=== PATIENT | female | born 1960 | race Caucasian/White ===

== ENCOUNTER 2021-12-17 06:08 | Outpatient (REF) | payer OTHER, SELFPAY ==
[2021-12-17 12:01] LABS: Free T4 (Free Thyroxine) 1.18 ng/dL (0.71-1.85); Thyroid Stimulating Hormone 1.61 uIU/mL (0.32-4.0); Vitamin D 25-OH Total 16.7 ng/mL (>30)
[2021-12-17 12:04] LABS: Alanine Aminotransferase 15 U/L (0-31); Anion Gap 11 (12-20); Aspartate Amino Transferase 21 U/L (5-31); Blood Urea Nitrogen 15 mg/dL (9-16); Calcium 9.4 mg/dL (8.4-10.2); Carbon Dioxide 29 mmol/L (22-29); Chloride 103 mmol/L (96-108); Cholesterol 207 mg/dL; Estimated Glomerular Filt Rate > 60; Glucose Fasting 90 mg/dL (60-99); HDL Cholesterol 94 mg/dL; LDL Cholesterol Calculated 101 mg/dl; Potassium 4.3 mmol/L (3.3-5.1); Sodium 139 mmol/L (135-145); Triglycerides 61 mg/dL
== END 2021-12-17 06:09 | disposition home or self-care (01) ==
LOC: HO.HMGCLDS 06:08
PROVIDERS: Visit Provider Internal Medicine
DX: Z00.00 Encounter for general adult medical examination without abnormal findings (principal); E03.9 Hypothyroidism, unspecified; E55.9 Vitamin D deficiency, unspecified
CPT/HCPCS: 36415; 80048; 80061; 82306; 84439; 84443; 84450; 84460

== ENCOUNTER 2021-12-24 11:49 | Outpatient (REF) | payer OTHER, SELFPAY ==
[2021-12-30 00:02] LABS: HPV mRNA E6/E7 rflx Not Detected (Not Detected)
== END 2021-12-24 11:50 | disposition home or self-care (01) ==
LOC: HO.LNP 11:49
PROVIDERS: Visit Provider Internal Medicine
DX: Z12.4 Encounter for screening for malignant neoplasm of cervix (principal); Z11.51 Encounter for screening for human papillomavirus (HPV)
CPT/HCPCS: 87624; 88142

== ENCOUNTER 2022-03-19 10:58 | Outpatient (REF) | payer OTHER, SELFPAY ==
[2022-03-19 14:04] LABS: Vitamin D 25-OH Total 61.2 ng/mL (>30)
== END 2022-03-19 10:59 | disposition home or self-care (01) ==
LOC: HO.HMGCLDS 10:58
PROVIDERS: Visit Provider Internal Medicine
DX: E55.9 Vitamin D deficiency, unspecified (principal)
CPT/HCPCS: 36415; 82306

== ENCOUNTER → 2022-03-21 08:14 | Outpatient (BNVA) | payer OTHER, SELFPAY | PROVIDERS: PCP Internal Medicine; Visit Provider Obstetrics & Gynecology | DX: Z01.419 Encounter for gynecological examination (general) (routine) without abnormal findings (principal) ==

== ENCOUNTER 2023-01-16 06:15 | Outpatient (REF) | payer OTHER, SELFPAY ==
[2023-01-16 12:51] LABS: Alanine Aminotransferase 14 U/L (0-31); Anion Gap 15 (12-20); Aspartate Amino Transferase 18 U/L (5-31); Blood Urea Nitrogen 20 mg/dL (9-16); Calcium 9.3 mg/dL (8.4-10.2); Carbon Dioxide 27 mmol/L (22-29); Chloride 107 mmol/L (96-108); Cholesterol 198 mg/dL; Estimated Glomerular Filt Rate > 60; Free T4 (Free Thyroxine) 0.91 ng/dL (0.71-1.85); Glucose Fasting 87 mg/dL (60-99); HDL Cholesterol 89 mg/dL; LDL Cholesterol Calculated 97 mg/dl; Potassium 4.8 mmol/L (3.3-5.1); Sodium 144 mmol/L (135-145); Thyroid Stimulating Hormone 2.51 uIU/mL (0.32-4.0); Triglycerides 62 mg/dL
== END 2023-01-16 06:16 | disposition home or self-care (01) ==
LOC: HO.HMGCLDS 06:15
PROVIDERS: PCP Internal Medicine; Visit Provider Internal Medicine
DX: Z00.01 Encounter for general adult medical examination with abnormal findings (principal); E03.9 Hypothyroidism, unspecified; N95.1 Menopausal and female climacteric states
CPT/HCPCS: 36415; 80048; 80061; 84439; 84443; 84450; 84460

== ENCOUNTER → 2023-04-20 14:53 | Outpatient (BNVA) | payer OTHER, SELFPAY | PROVIDERS: PCP Internal Medicine; Visit Provider Obstetrics & Gynecology ==

== ENCOUNTER 2023-09-12 13:17 | Outpatient (AMB) | payer OTHER, SELFPAY ==
--- NOTE | 2023-09-12 13:25 | A.OFFVIS_ITS ---
Intake Vital Signs 09/12/23 13:27 Height 5 ft 6 in Weight 157 lb BMI 25.3 BP 144/75 H Blood Pressure Location Lt brachial Position Sitting Pulse 56 Intake Visit Reasons: Colonoscopy Screening Intake Note: Patient 2nd pre colonoscopy screening. Patient denies any GI issues. Naturalization Examiner Required: No Accompanied by: Self / Same As Patient Allergies No Known Allergies [No Known Allergies*] Allergy (Verified 09/12/23 13:24) Medication List - Last Reconciled 09/12/23 by Yvrose Adam PA-C levothyroxine 112 mcg PO DAILY HPI HPI Comments History of Present Illness Details A 62-year-old female follows up for 10 year colonoscopy. She has no GI complaints. She has no family history GI cancer She has a normal bowel pattern She has a good appetite No respiratory or cardiac issues Nausea, and vomiting, hematemesis, hematochezia, fever or chills [facility], [facility] Medical History (Updated 09/12/23 @ 13:38 by Yvrose Adam PA-C) ASCUS of cervix with negative high risk HPV Refused influenza vaccine Nocturnal leg cramps Varicose veins of both lower extremities Vitamin D deficiency Acquired hypothyroidism Surgical History Hx of colonoscopy History of dental surgery Status post phlebectomy Social History Housing: House Patient Tobacco Use Status: Never used Tobacco e-Cigarette/Vaping Use: Never Used service: No Current occupational status: employed Cognitive needs: No Hearing needs: No Vision needs: No Review of Systems Const All systems reviewed & are unremarkable except as noted in HPI and below Card Denies chest pain and Denies dyspnea Resp Denies dyspnea GI Denies abdominal pain, Denies nausea and Denies vomiting Physical Exam Vital Signs: Last Vital Signs Pulse 56 09/12/23 13:27 BP 144/75 H 09/12/23 13:27 BMI result Body Mass Index 25.3 Const General: cooperative, healthy appearing, comfortable and no acute distress Orientation/consciousness: patient oriented x3 Limitations: no limitations Eyes Sclerae: sclerae normal Resp Effort & Inspection: normal respiratory effort and able to speak in complete sentences Auscultation: clear to auscultation bilaterally, no rales, no rhonchi and no wheezes Cardio Rate: regular rate Rhythm: regular rhythm Heart sounds: S1 normal heart sound present and S2 normal heart sound present GI Palpation (GI): Soft to palpation and nontender Auscultation: normal bowel sounds Skin General skin exam: no rashes or lesions noted Neuro General: patient oriented x3 Extrem General: Yes full ROM Psych Appearance: grossly normal Mental Status: mental status grossly normal Speech and movement: Normal speech and movement present and Clear speech present Affect: normal affect Attitude: cooperative Thought process: Normal thought process present Thought content: Normal thought content present Insight: Good insight present (Psych) Judgement: Good judgement present (Psych) Assessment & Plan Assessment & Plan (1) Encounter for screening colonoscopy: Code(s): Z12.11 - Encounter for screening for malignant neoplasm of colon Plan: Screening colonoscopy MiraLax Gatorade prep Reviewed prep, need for escorted, rare risks Plan Screening colonoscopy MiraLax Gatorade prep Orders: Orders Colonoscopy - GI Use Only Today Z12.11 - Encounter for screening for malignant neoplasm of colon Medications: New polyethylene glycol 3350 (Miralax) Take as directed by mouth the day before your procedure. 238 grams PO ONCE 1 day PRN 238 grams 0RF laxative effect bisacodyl (Dulcolax (bisacodyl)) Day before procedure, prep day Take 4 tablets by mouth upon awakening followed by large glass of water 20 mg (4 x 5 mg) PO ONCE 1 day 4 tabs 0RF colonoscopy prep Z12.11 - Encounter for screening for malignant neoplasm of colon Patient Instructions: Screening colonoscopy MiraLax Gatorade prep opportunity for questions Encourage to call questions or concerns Coding Level of Care Code New Pt Level 3 (41962) Diagnoses Encounter for screening colonoscopy Z12.11 Time Spent (min) 30
[2023-09-12 13:27] VITALS: BP 144/75; PULSE 56; BMI 25.3
== END 2023-09-12 14:42 | disposition home or self-care (01) ==
PROVIDERS: PCP Internal Medicine; Visit Provider Physician Assistant
DX: Z12.11 Encounter for screening for malignant neoplasm of colon (principal); Z01.818 Encounter for other preprocedural examination
CPT/HCPCS: 99203

== ENCOUNTER → 2023-09-12 13:17 | Outpatient (BNVA) | payer OTHER, SELFPAY | PROVIDERS: PCP Internal Medicine; Visit Provider Physician Assistant ==

== ENCOUNTER 2023-12-23 07:14 | Outpatient (REF) | payer OTHER, SELFPAY ==
[2023-12-23 12:15] LABS: Cholesterol 213 mg/dL (<200); Glucose Fasting 89 mg/dL (60-99); HDL Cholesterol 106 mg/dL (>40); LDL Cholesterol Calculated 98 mg/dL (<100); Triglycerides 47 mg/dL (<150)
[2023-12-23 12:20] LABS: Free T4 (Free Thyroxine) 1.02 ng/dL (0.71-1.85); Thyroid Stimulating Hormone 1.61 uIU/mL (0.32-4.0); Vitamin D 25-OH Total 38.2 ng/mL (>30)
== END 2023-12-23 07:15 | disposition home or self-care (01) ==
LOC: HO.HMGCLDS 07:14
PROVIDERS: PCP Internal Medicine; Visit Provider Internal Medicine
DX: Z13.220 Encounter for screening for lipoid disorders (principal); Z13.1 Encounter for screening for diabetes mellitus; Z78.0 Asymptomatic menopausal state; E03.9 Hypothyroidism, unspecified
CPT/HCPCS: 36415; 80061; 82306; 82947; 84439; 84443

== ENCOUNTER 2024-02-26 07:48 | Day surgery (SDC) | payer OTHER, SELFPAY ==
[2024-02-26 08:10] VITALS: BMI 25.8
[2024-02-26 08:29] VITALS: BP 154/63; PULSE 54; RESP 16; TEMP 36.2; O2SAT 98
[2024-02-26] MEDS: Lactated Ringers 1,000 ML 80 ML IVCONT (08:31)
--- NOTE | 2024-02-26 08:32 | MHC.SHP ---
Pre-Procedural Eval Section A - 24 Hr Update-Section A only Date of Service: 02/26/24 The patient is an INPATIENT: No The patient has been examined within 24 hours of the surgical procedure. The History & Physical has been completed within 30 days and I have reviewed it.: No Section B - Complete if H&P > 30 days Chief Complaint: colon Cancer screening Relevant Family History (Specify if Yes): No Relevant Social History: None Present Medications: see Short Stay Collaborative assessment Medical History: Significant History (ASCUS of cervix with negative high risk HPV Refused influenza vaccine Nocturnal leg cramps Varicose veins of both lower extremities Vitamin D deficiency Acquired hypothyroidism) History of Previous Operations: Relevant previous surgery/procedure and date(s) (Hx of colonoscopy History of dental surgery Status post phlebectomy) Allergies: Allergies Allergy/AdvReac Type Severity Reaction Status Date / Time No Known Allergies Allergy Verified 09/12/23 13:24 [No Known Allergies*] Review of Systems Sugical H&P ROS: Negative: Constitution, Cardiovascular, Respiratory and Gastrointestinal Exam Surgical H&P Exam: Normal: Heart, Normal: Lungs, Normal: Extremities and Normal: Abdomen Plan Diagnosis/Plan: Unchanged I have reviewed the history and physical and performed a pertinent physical examination on my patient. No changes have occurred unless specified. Time Spent With Patient Time: Total time managing care of this patient today ____ minutes.
--- NOTE | 2024-02-26 09:00 | W.PM.OPN ---
Operative Note Operative Note Date of Service: 02/26/24 Narrative: COLONOSCOPY TILL CECUM WITH SNARE POLYPECTOMY AND SUBMUCOSAL INJECTION Pre-op diagnosis: Colon cancer screening Post-op diagnosis:? Colon polyp, Diverticulosis, hemorrhoids Endoscopist:? Shashank Cedillo MD Anesthesia:?MAC Consent: Indications for the procedure and potential complications of bleeding, perforation, reaction to medications and missed diagnosis were discussed with the patient and informed consent was obtained. Instrument: Olympus PCF H 190 L variable stiffness pediatric colonoscope Monitoring: Vital signs and clinical assessment, intermittent blood pressure monitoring, continuous EKG monitoring, Pulse oximetry and Carbon Dioxide monitoring were done throughout the procedure. Please see anesthesia flowsheet. Colon withdrawl time was 22 minutes. Procedure: The patient was placed in the left lateral decubitis position and pre-procedure medications were administered. After a digital rectal examination of the ano-rectum, the video colonoscope was inserted into the rectum and advanced through the colon to the cecum. The colonoscope was slowly withdrawn in a retrograde panoramic fashion and the colon mucosa was carefully examined including a retroflexed view of the rectum. Findings and interventions are described below. Procedure Difficulty: without difficulty Findings: Terminal Ileum: Not evaluated Cecum: Normal Ascending Colon: A 7-8 mm flat polyp in the proximal AC. Polyp was raised with 4 cc of [place] and removed with a hot snare Transverse Colon: Normal Descending Colon: Normal Sigmoid Colon: Moderate diverticulosis Rectum: Normal Ano-rectum: Moderate internal hemorrhoids Colon preparation: Excellent, after some irrigation. [place] Bowel Preparation Scale Right colon; 3 Transverse colon: 3 Left colon; 3 (0 = Unprepared colon segment with mucosa not seen due to solid stool that cannot be cleared. 1 = Portion of mucosa of the colon segment seen, but other areas of the colon segment not well seen due to staining, residual stool and/or opaque liquid. 2 = Minor amount of residual staining, small fragments of stool and/or opaque liquid, but mucosa of colon segment seen well. 3 = Entire mucosa of colon segment seen well with no residual staining, small fragments of stool or opaque liquid) Impression and Post Procedure Diagnosis: Colonoscopy Findings: One small polyp was removed Moderate diverticulosis seen in the sigmoid colon Moderate hemorrhoids on retroflexed exam. Plan: I will send a letter with pathology results Repeat Colonoscopy in 5 years if polyps are adenomatous and 10 year if polyps are hyperplastic. Pt was given a written summary of the findings with relevant handouts in the discharge area.
--- NOTE | 2024-02-26 09:01 | HO.ANESPROP2 ---
COUNT INCLUDES THE [facility] Active Problems Active Problems: All Active Problems Encounter for screening colonoscopy (Acute) Well woman exam (Acute) ASCUS of cervix with negative high risk HPV (Acute) Vitamin D deficiency (Acute) Acquired hypothyroidism (Acute) Past Medical History Medical History ASCUS of cervix with negative high risk HPV Refused influenza vaccine Nocturnal leg cramps Varicose veins of both lower extremities Vitamin D deficiency Acquired hypothyroidism Family History Family history of problems with anesthesia: No Surgical History Surgical History Hx of colonoscopy History of dental surgery Status post phlebectomy History of Problems with Anesthesia: No Social History Social History Housing: House Patient Tobacco Use Status: Never used Tobacco e-Cigarette/Vaping Use: Never Used Use of substances other than those prescribed or required for medical reasons: No Are you DNR?: No Advance Directives: No Advance Directives Information Provided: Yes service: No Current occupational status: employed Cognitive needs: No Hearing needs: No Vision needs: No Meds Allergies Allergy/AdvReac Type Severity Reaction Status Date / Time No Known Allergies Allergy Verified 09/12/23 13:24 [No Known Allergies*] Active Medications: Current Medications Lactated Ringer's (Lr) 1,000 mls @ 80 mls/hr IVCONT .[id number] DIOGENES Last Admin: 02/26/24 08:31 Dose: 80 mls/hr Exam Height,Weight and Vital Signs: Height 5 ft 6 in Weight 72.575 kg Last Vital Signs Temp 97.1 F 02/26/24 08:29 Pulse 54 02/26/24 08:29 Resp 16 02/26/24 08:29 BP 154/63 H 02/26/24 08:29 Pulse Ox 98 02/26/24 08:29 O2 Del Method Room Air 02/26/24 08:29 Airway Mallampati Class: II (false tooth upper left) TM Dist: >3cm Neck ROM: Full Heart: rrr Lungs: cta Assessment and Plan Assessment Anesthesia Assessment: Anesthesia Plan Discussed and Chart Reviewed Final Anesthetic Review Family History of Problems with Anesthesia: No History of Problems with Anesthesia: No NPO: Yes ASA Class: II Final Preanesthetic Review: No Changes in Pt Med Stat, Meds/Allgs Chart Reviewed and Consent Obtained/Reviewed Patient Risk: Low Procedure Risk: Low Anesthetic Plan Anesthetic Plan: MAC: Disposition: Standard PACU
[2024-02-26 09:42] VITALS: BP 105/56; PULSE 60; RESP 16; TEMP 36.3; O2SAT 100
[2024-02-26 09:57] VITALS: BP 149/54; PULSE 48; RESP 16; TEMP 36.1; O2SAT 98
== END 2024-02-26 10:55 | disposition home or self-care (01) ==
PROVIDERS: PCP Internal Medicine; Visit Provider Internal Medicine Gastroenterology
PROC: 0DJD8ZZ Inspection of Lower Intestinal Tract, Via Natural or Artificial Opening Endoscopic (ICD-10-PCS; CPT 45378; principal; 2024-02-26 09:20)
DX: Z12.11 Encounter for screening for malignant neoplasm of colon (principal); K63.5 Polyp of colon; K57.30 Diverticulosis of large intestine without perforation or abscess without bleeding; K64.8 Other hemorrhoids; E55.9 Vitamin D deficiency, unspecified; E03.9 Hypothyroidism, unspecified; Z98.890 Other specified postprocedural states
CPT/HCPCS: 45385; 45381; 88305; J2704

== ENCOUNTER → 2024-02-26 07:48 | Outpatient (BNV) | payer OTHER, SELFPAY | PROVIDERS: PCP Internal Medicine; Visit Provider Internal Medicine Gastroenterology | DX: Z12.11 Encounter for screening for malignant neoplasm of colon (principal); K63.5 Polyp of colon; K57.30 Diverticulosis of large intestine without perforation or abscess without bleeding; K64.8 Other hemorrhoids | CPT/HCPCS: 45381; 45385 ==

== ENCOUNTER 2024-04-24 15:10 | Outpatient (AMB) | payer OTHER, SELFPAY ==
--- NOTE | 2024-04-24 15:30 | MHC.OFFVIS ---
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 No complaints. Last Pap/HPV was ascus/HPV negative in 12/28 Last Mammogram was BI-RADS 2 in 08/27 Last Colonoscopy was done in 02/27, the recommendation was to repeat in 10 years [facility] Medical History (Updated 04/24/24 @ 15:57 by Jam Hernandez MD) ASCUS of cervix with negative high risk HPV Refused influenza vaccine Nocturnal leg cramps Varicose veins of both lower extremities Vitamin D deficiency Acquired hypothyroidism Surgical History Hx of colonoscopy History of dental surgery Status post phlebectomy Social History Housing: House Patient Tobacco Use Status: Never used Tobacco e-Cigarette/Vaping Use: Never Used service: No Current occupational status: employed Cognitive needs: No Hearing needs: No Vision needs: No Female Reproductive History Menstrual Date of last pap smear: 12/28/21 Date of Mammogram: 09/01/22 Review of Systems Const All systems reviewed & are unremarkable except as noted in HPI and below Card Reports as per HPI Resp Reports as per HPI GI Reports as per HPI and Reports no additional complaints Reports as per HPI Physical Exam Const General: cooperative, healthy appearing and comfortable Chest Chest palpation & inspection: normal inspection of the chest and normal palpation of entire chest wall Breast/axilla inspection: normal inspection of the breasts and normal inspection of the axillae Breast/axilla palpation: normal palpation of the breasts, normal palpation of the axillae and no axillary lymphadenopathy Resp Effort & Inspection: normal respiratory effort Auscultation: clear to auscultation bilaterally Percussion: percussion normal Cardio Palpation: normal PMI Rate: regular rate Rhythm: regular rhythm Heart sounds: no murmurs and no rubs Peripheral pulses: Peripheral pulses 2+ throughout GI Inspection: Yes normal to inspection Palpation (GI): Soft to palpation, nontender, no guarding, not rigid and No hepatosplenomegaly present Percussion: Yes normal to percussion Auscultation: normal bowel sounds Rectal Exam - Female: deferred General: Yes bladder normal to palpation External Female Exam: No lesion Speculum Exam - Vagina: normal appearance of the vagina, normal palpation, normal vaginal discharge and not erythematous Speculum Exam - Cervix: normal appearance of the cervix and normal palpation Bimanual exam- vagina & uterus: normal bimanual exam, normal palpation, uterine size normal, bladder normal to palpation, consistency normal and normal palpation Bimanual Exam- Adnexa, other: no tenderness and Other (Right adnexa within normal, left adnexal fullness) Assessment & Plan Assessment & Plan (1) Well woman exam: Comment: Ascus/HPV negative in 12/28 Code(s): Z01.419 - Encounter for gynecological examination (general) (routine) without abnormal findings Category: Medical Plan: Co testing done. Counseled the patient about the recommended dietary allowance of 1200 mg of Calcium & 600 IU of vitamin D. Mammogram ordered. The patient was instructed to perform monthly self-breast exams and schedule annual exam in a year. All questions answered and the patient verbalized understanding. (2) Adnexal fullness: Comment: Left side Code(s): N94.9 - Unspecified condition associated with female genital organs and menstrual cycle Category: Medical Plan: Discussed with the patient the finding on pelvic exam, left adnexal fullness. Pelvic ultrasound ordered. Instructions given the patient to schedule a pelvic ultrasound and a follow-up appointment within 2 weeks. Orders: Orders US pelvic and transvaginal Today N94.9 - Unspecified condition associated with female genital organs and menstrual cycle MM tomosynthesis screening BI Today Z12.31 - Encounter for screening mammogram for malignant neoplasm of breast Coding Level of Care Code Est Pt Prev Care 40-64y(32378) Diagnoses Well woman exam Z01.419 Adnexal fullness N94.9
[2024-04-24 15:34] VITALS: BP 110/74; BMI 25.6
== END 2024-04-24 16:12 | disposition home or self-care (01) ==
LOC: HO.HWS 15:10
PROVIDERS: PCP Internal Medicine; Visit Provider Obstetrics & Gynecology
DX: Z01.419 Encounter for gynecological examination (general) (routine) without abnormal findings (principal); N94.9 Unspecified condition associated with female genital organs and menstrual cycle
CPT/HCPCS: 99396

== ENCOUNTER 2024-04-24 15:10 | Outpatient (REF) | payer OTHER, SELFPAY ==
[2024-04-30 10:44] LABS: HPV mRNA E6/E7 Not Detected (Not Detected)
== END 2024-04-24 15:11 | disposition home or self-care (01) ==
LOC: HO.LNP 15:10
PROVIDERS: PCP Internal Medicine; Visit Provider Obstetrics & Gynecology
DX: Z01.419 Encounter for gynecological examination (general) (routine) without abnormal findings (principal); Z11.51 Encounter for screening for human papillomavirus (HPV)
CPT/HCPCS: 87624; 88142; 88175

== ENCOUNTER 2024-05-01 11:11 | Outpatient (REF) | payer OTHER, SELFPAY ==
--- NOTE | ~2024-05-01 | US_ITS ---
EXAMINATION: US PELVIS COMPLETE CLINICAL INFORMATION: Adnexal fullness. COMPARISON: None. TECHNIQUE: Transabdominal and transvaginal imaging were performed. FINDINGS: The uterus is of normal size and echogenicity measuring 6.5 x 4.1 x 5.1 cm. The uterus is anteverted and anteflexed. A regular, homogeneous endometrium is identified measuring 0.4 cm. Nabothian cysts are seen within the cervix. There are cervical calcifications which may be related to fibroid disease. FIBROIDS: There is 1 fibroid seen. 1. Location: Leftward body, myometrial. Size: 2.9 x 3.0 x 3.6 cm. Fibroid characteristics: Heterogeneous echotexture. Both ovaries are nonvisualized. There is no pelvic free fluid. No adnexal mass is seen. US/US pelvic and transvaginal IMPRESSION: 1. There is a 3.6 cm left uterine fibroid. 2. The ovaries are nonvisualized. 3. Nabothian cysts are seen within the cervix.
== END 2024-05-01 11:12 | disposition home or self-care (01) ==
LOC: HO.US 11:11
PROVIDERS: PCP Internal Medicine; Visit Provider Obstetrics & Gynecology
DX: N94.9 Unspecified condition associated with female genital organs and menstrual cycle (principal)
CPT/HCPCS: 76830; 76856

== ENCOUNTER 2024-05-28 07:33 | Outpatient (AMB) | payer OTHER, SELFPAY ==
--- NOTE | 2024-05-28 07:36 | A.OFFVIS_ITS ---
Vital Signs 05/28/24 07:43 Height 5 ft 6 in Weight 158 lb 11.725 oz BMI 25.6 Intake Visit Reasons: Ultrasound follow up Allergies No Known Allergies [No Known Allergies*] Allergy (Verified 04/24/24 15:34) HPI Comments Details: Presenting for pelvic ultrasound follow-up regarding adnexal fullness identified on pelvic exam. Pelvic ultrasound done recently showed the following: The uterus is of normal size and echogenicity measuring 6.5 x 4.1 x 5.1 cm. The uterus is anteverted and anteflexed. A regular, homogeneous endometrium is identified measuring 0.4 cm. Nabothian cysts are seen within the cervix. There are cervical calcifications which may be related to fibroid disease. FIBROIDS: There is 1 fibroid seen. 1. Location: Leftward body, myometrial. Size: 2.9 x 3.0 x 3.6 cm. Fibroid characteristics: Heterogeneous echotexture. Both ovaries are nonvisualized. There is no pelvic free fluid. No adnexal mass is seen. [facility] Medical History ASCUS of cervix with negative high risk HPV Refused influenza vaccine Nocturnal leg cramps Varicose veins of both lower extremities Vitamin D deficiency Acquired hypothyroidism Surgical History Hx of colonoscopy History of dental surgery Status post phlebectomy Social History Housing: House Patient Tobacco Use Status: Never used Tobacco e-Cigarette/Vaping Use: Never Used service: No Current occupational status: employed Cognitive needs: No Hearing needs: No Vision needs: No Review of Systems Const All systems reviewed & are unremarkable except as noted in HPI and below Reports as per HPI and Reports no additional complaints GI Reports no additional complaints Reports no additional complaints Physical Exam Vital Signs: BMI result Body Mass Index 25.6 Assessment & Plan Assessment & Plan (1) Uterine myoma: Code(s): D25.9 - Leiomyoma of uterus, unspecified Category: Medical Plan: Discussed with the patient the findings on pelvic ultrasound & the risk of myosarcoma; discussed with the patient the options of treatment including expectant management versus hysterectomy; the pros and cons, risks benefits of each approach were discussed with the patient including the fact that in cases of myosarcoma, surgical treatment can lead to early diagnosis and positively affects the prognosis; after further discussion, the patient decided to proceed with expectant management. Will repeat pelvic ultrasound periodically. Instructions given to patient to call in case any of the following occurs: pressure symptoms, abnormal uterine bleeding, pelvic pain; and to schedule a 4 months ultrasound and a follow-up appointment . All questions answered, the patient verbalized understanding and agreed with the plan . Orders: Orders US pelvic and transvaginal 4 Months D25.9 - Leiomyoma of uterus, unspecified Coding Level of Care Code Est Pt Level 3 (28538) Diagnoses Uterine myoma D25.9
[2024-05-28 07:43] VITALS: BMI 25.6
== END 2024-05-28 08:18 | disposition home or self-care (01) ==
PROVIDERS: PCP Internal Medicine; Visit Provider Obstetrics & Gynecology
DX: D25.9 Leiomyoma of uterus, unspecified (principal)
CPT/HCPCS: 99213

== ENCOUNTER → 2024-05-28 07:33 | Outpatient (BNVA) | payer OTHER, SELFPAY | PROVIDERS: PCP Internal Medicine; Visit Provider Obstetrics & Gynecology ==

== ENCOUNTER 2024-06-04 13:21 | Outpatient (AMB) | payer OTHER, SELFPAY ==
[2024-06-04 13:28] VITALS: BP 110/64; PULSE 62; O2SAT 96; BMI 26.0
--- NOTE | 2024-06-04 13:28 | A.OFFPC_ITS ---
Vital Signs 06/04/24 13:28 Height 5 ft 6 in Weight 161 lb BMI 26.0 BP 110/64 Blood Pressure Location Rt brachial Position Sitting Pulse 62 Pulse Source Pulse Oximeter Pulse Oximetry (%) 96 Oxygen Delivery Method Room Air Intake Visit Reasons: PE Intake Note: Pt is here today for her PE Allergies No Known Allergies [No Known Allergies*] Allergy (Verified 06/04/24 14:05) Medication List - Last Reconciled 06/04/24 by Jannet Marie MD levothyroxine 112 mcg PO DAILY Tobacco use date assessed: 06/04/24 Dental Screening Dental Screen Date: 06/04/24 Did you have a dental visit in the last 12 months?: Yes Did you have a dental problem in the last 6 months where you did not have access to dental care?: Yes Was dental information given to patient?: Patient has dentist HPI PE HPI Details 63-year-old lady here today for physical exam. She is up-to-date with her mammogram, had her last mammogram a year ago at [facility] with benign findings.. She had her last cervical cancer screening 04/[address] Hernandez, with normal findings. She is up-to-date with her colon cancer screening with last colonoscopy done 02/26/24 repeat due again in 2031. She has hypothyroidism, currently controlled with levothyroxine. Has been feeling well with no complaints at present time [facility] Medical History (Updated 06/04/24 @ 22:46 by Jannet Marie MD) ASCUS of cervix with negative high risk HPV Refused influenza vaccine Nocturnal leg cramps Varicose veins of both lower extremities Vitamin D deficiency Acquired hypothyroidism Surgical History Hx of colonoscopy History of dental surgery Status post phlebectomy Social History Housing: House Patient Tobacco Use Status: Never used Tobacco e-Cigarette/Vaping Use: Never Used service: No Current occupational status: employed Cognitive needs: No Hearing needs: No Vision needs: No Questionnaire PHQ-9 Over the last 2 weeks, how often have you been bothered by any of the following problems? 1. Little interest or pleasure in doing things: not at all 2. Feeling down, depressed, or hopeless: not at all 3. Trouble falling or staying asleep, or sleeping too much: not at all 4. Feeling tired or having little energy: not at all 5. Poor appetite or overeating: not at all 6. Feeling bad about yourself - or that you are a failure or have let yourself or your family down: not at all 7. Trouble concentrating on things, such as reading the newspaper or watching television: not at all 8. Moving or speaking so slowly that other people could have noticed. Or the opposite - being so fidgety or restless that you have been moving around a lot more than usual: not at all 9. Thoughts that you would be better off or of hurting yourself in some way: not at all Total score: 0 Depression Screening Interpretation: Negative Depression Screening Done: Yes 49774 - PHQ-9 Billing: Yes Source: Developed by Drs. Wolf Sharif, Aisnley Mabry, Joo Carlton and colleagues, with an educational gildardo from [employer]. Thrive Questionnaire Date Thrive assessed: 06/04/24 I am a: Patient What is your living situation today?: I have a steady place to live Within the past 12 months, did the food you bought not last and you didn't have the money to get more?: I choose not to answer this question Within the past 12 months, did you worry whether your food would run out before you got money to buy more?: I choose not to answer this question Do you have trouble paying for medicines?: No Do you have trouble getting transportation to medical appointments?: No Do you have trouble paying your heating and electricity bill?: No Do you have trouble taking care of your child, family member or friend?: No Do you have trouble with day-to-day activities such as bathing, preparing meals, shopping, managing finances, etc.?: I choose not to answer this question Are you currently unemployed and looking for a job?: I choose not to answer this question Are you interested in more education?: I choose not to answer this question Please select the resources that you would like help with: Housing/Custodial Currently or been in a relationship where the following occur: I choose not to answer THRIVE Score: 0 AUDIT C Alcohol Use Questionnaire (AUDIT-C) 1. How often do you have a drink containing alcohol?: 4 or more times a week 2. How many drinks containing alcohol do you have on a typical day when you are drinking?: 3 or 4 3. How often do you have six or more drinks on one occasion?: Never Total Score: 5 RAJINDER-7 AMB Questionnaire RAJINDER-7 Date RAJINDER - 7 assessed: 06/04/24 Feeling nervous, anxious, or on edge: 1 = Several days Not being able to stop or control worryin = Not at all Worrying too much about different things: 0 = Not at all Trouble relaxin = Not at all Being so restless that it is hard to sit still: 0 = Not at all Becoming easily annoyed or irritable: 0 = Not at all Feeling afraid as if something awful might happen: 0 = Not at all Total RAJINDER-7 score (0-4 normal; 5-9 mild; 10-14 moderate; 15-21 severe): 1 Source: Developed by Drs. Wolf Sharif, Ainsley Mabry, Joo Carlton and colleagues, with an educational gildardo from [employer]. RAJINDER-7 Assessment Billing RAJINDER-7 Assessment Tool: RAJINDER-7 Assessment 16700 Review of Systems Const Denies body aches, Denies fatigue, Denies fever(s), Denies headache(s) and Denies weakness Eyes Denies change in vision ENT Denies dizziness, Denies headache(s), Denies nasal congestion and Denies nasal discharge Card Denies chest pain, Denies lightheadedness, Denies palpitations and Denies dyspnea Resp Denies chest congestion, Denies cough, Denies dyspnea and Denies wheezing GI Denies abdominal pain, Denies change in bowel habits and Denies heartburn Denies urinary frequency, Denies dysuria and Denies urinary urgency Musc Reports no additional complaints Skin/Breast Denies lesions and Denies rash Neuro Denies dizziness, Denies headache(s) and Denies weakness Psych Reports no additional complaints Endo Denies fatigue, Denies polydipsia, Denies polyuria and Denies palpitations Arden/Lymph Denies easy bruising Aller/Immun Denies seasonal rhinorrhea and Denies wheezing Physical exam (Primary Care) Vital Signs: Last Vital Signs Pulse 62 06/04/24 13:28 BP 110/64 06/04/24 13:28 Pulse Ox 96 06/04/24 13:28 Oxygen Delivery Method Room Air 06/04/24 13:28 BMI result Body Mass Index 26.0 Tobacco/Smoking Status: Tobacco use Status Tobacco use date assessed 06/04/24 06/04/24 13:30 Patient Tobacco Use Status Never used Tobacco 06/04/24 13:30 e-Cigarette/Vaping Use Never Used 06/04/24 13:30 Depression Screening Interpretation: Negative Thrive Assessment: Date of Thrive Assessment Date Thrive assessed 06/04/24 06/04/24 13:30 Currently or been in a relationship where the following occur: I choose not to answer Const General: healthy appearing, comfortable and no acute distress Nutritional Appearance: average body habitus Orientation/consciousness: patient oriented x3 Limitations: no limitations HENMT Head: Yes normocephalic Ears: hearing grossly normal bilaterally, external ears normal and TM's normal bilaterally General nose exam: Normal external nose present, Normal nasal mucous membranes and turbinates present and No nasal discharge present Face and sinus: Yes face symmetric Mouth: Normal oral and palatal mucosa present and moist mucous membranes Eyes General: appearance normal, both eyes and all related structures Neck Neck: Yes full ROM, Yes no lymphadenopathy and Yes supple Thyroid: Thyroid normal (Nonpalpable) Chest Chest palpation & inspection: normal inspection of the chest Breast/axilla inspection: normal inspection of the breasts Breast/axilla palpation: normal palpation of the breasts Resp Effort & Inspection: normal respiratory effort and able to speak in complete sentences Auscultation: clear to auscultation bilaterally Cardio Rate: regular rate Rhythm: regular rhythm Heart sounds: S1 normal heart sound present and S2 normal heart sound present GI Palpation (GI): Soft to palpation, nontender and no guarding Auscultation: normal bowel sounds General: Yes deferred Back/Spine/Pelvis Back: No back tenderness Skin Other: tattoo on lower back General skin exam: no rashes or lesions noted Neuro General: patient oriented x3, gait normal, tone normal, moves all extremities, Normal light touch and pain sensation, no focal motor deficits and CN's II-XI intact bilaterally Extrem Other: Superficial varicosities noted in both lower extremities General: Yes full ROM, Yes no joint enlargement, Yes no pedal edema, Yes no calf tenderness and Yes normal gait Psych Appearance: grossly normal and well kempt Mental Status: mental status grossly normal Speech and movement: Normal speech and movement present Affect: normal affect Attitude: cooperative Thought process: Normal thought process present Thought content: Normal thought content present Assessment and Plan Assessment & Plan (1) Annual visit for general adult medical examination with abnormal findings: Code(s): Z00.01 - Encounter for general adult medical examination with abnormal findings Plan: Will check appropriate labs. Recommended dental visit every 6 months and regular eye exams, at least every 2 years. Take adequate calcium in diet and vitamin-D 3 at 2000 IU per cap once a day, in addition to weight-bearing exercises to help maintain good muscle tone and weight control. Instructed to do self-breast exam, and continue with yearly mammogram. Up-to-date with her vaccines, reminded to get her shingles vaccination. Up-to-date with her colon cancer screening (2) Acquired hypothyroidism: Code(s): E03.9 - Hypothyroidism, unspecified Plan: Continue levothyroxine 112 mcg daily in a.m., will repeat another TSH and free T4 (3) Vitamin D deficiency: Code(s): E55.9 - Vitamin D deficiency, unspecified Plan: Vitamin-D level ordered (4) Uterine myoma: Code(s): D25.9 - Leiomyoma of uterus, unspecified Qualifiers: Uterine leiomyoma location: unspecified location Qualified Code(s): D25.9 - Leiomyoma of uterus, unspecified Plan: Asymptomatic , followed by Dr. Hernandez (5) Encounter for counseling regarding advance directives: Code(s): Z71.89 - Other specified counseling Plan: Initiated the conversation about Advanced Directives. Advanced Directives help patients prepare for current and future decisions about their medical treatment and place of care. Discussed with patient that it is a process where a patients current condition and prognosis are reviewed, their wishes for information regarding their illness are elicited, and likely medical dilemmas are presented and options discussed. Healthcare proxy form completed today. The form can be amended as needed, reviewed yearly and make changes as needed Orders: Orders Vitamin D 25-OH Total Today D25.9 - Leiomyoma of uterus, unspecified, E03.9 - Hypothyroidism, unspecified, E55.9 - Vitamin D deficiency, unspecified, Z00.01 - Encounter for general adult medical examination with abnormal findings, Z71.89 - Other specified counseling Thyroid Stimulating Hormone Today D25.9 - Leiomyoma of uterus, unspecified, E03.9 - Hypothyroidism, unspecified, E55.9 - Vitamin D deficiency, unspecified, Z00.01 - Encounter for general adult medical examination with abnormal findings, Z71.89 - Other specified counseling Free T4 (Free Thyroxine) Today D25.9 - Leiomyoma of uterus, unspecified, E03.9 - Hypothyroidism, unspecified, E55.9 - Vitamin D deficiency, unspecified, Z00.01 - Encounter for general adult medical examination with abnormal findings, Z71.89 - Other specified counseling Coding Level of Care Code Est Pt Prev Care 40-64y(59339) Diagnoses Annual visit for general adult medical examination with abnormal findings Z00.01 Acquired hypothyroidism E03.9 Vitamin D deficiency E55.9 Uterine leiomyoma, unspecified location D25.9 Uterine leiomyoma location: unspecified location Encounter for counseling regarding advance directives Z71. Additional Codes RAJINDER-7 Assessment Billing - RAJINDER-7 Assessment Tool: RAJINDER-7 Assessment 19165 ([id number])
== END 2024-06-04 14:18 | disposition home or self-care (01) ==
PROVIDERS: PCP Internal Medicine; Visit Provider Internal Medicine
DX: Z00.00 Encounter for general adult medical examination without abnormal findings (principal); E03.9 Hypothyroidism, unspecified; E55.9 Vitamin D deficiency, unspecified; D25.9 Leiomyoma of uterus, unspecified; Z71.89 Other specified counseling
CPT/HCPCS: 99396

== ENCOUNTER 2024-06-13 10:01 | Outpatient (REF) | payer OTHER, SELFPAY ==
[2024-06-13 14:01] LABS: Free T4 (Free Thyroxine) 1.04 ng/dL (0.71-1.85); Thyroid Stimulating Hormone 1.24 uIU/mL (0.32-4.0); Vitamin D 25-OH Total 26.5 ng/mL (>30)
== END 2024-06-13 10:02 | disposition home or self-care (01) ==
LOC: HO.HMGCLDS 10:01
PROVIDERS: PCP Internal Medicine; Visit Provider Internal Medicine
DX: Z00.01 Encounter for general adult medical examination with abnormal findings (principal); E03.9 Hypothyroidism, unspecified; E55.9 Vitamin D deficiency, unspecified; D25.9 Leiomyoma of uterus, unspecified; Z71.89 Other specified counseling
CPT/HCPCS: 36415; 82306; 84439; 84443

== ENCOUNTER 2024-09-27 11:16 | Outpatient (REF) | payer OTHER, SELFPAY ==
--- NOTE | ~2024-09-27 | US_ITS ---
EXAMINATION: US PELVIS CLINICAL INFORMATION: Leiomyomatous uterus. COMPARISON: Pelvic ultrasound dated May 01, 2024 demonstrated a 3.6 cm uterine fibroid TECHNIQUE: Ultrasound of the pelvis is performed using both transabdominal and transvaginal transducers along with Doppler. Transvaginal imaging is performed due to inadequate visualization transabdominally. FINDINGS: Submitted for interpretation on October 16, 2024. Uterus: The uterus is anteverted and measures 7 x 2 x 5 cm. Volume is 34 cc. The double wall endometrial thickness is 3 mm. There is a 3 cm intramural heterogeneous, predominantly isoechoic lesion in the body of the uterus without discrete calcifications. Adnexa: The right ovary is not identified. The left ovary demonstrates normal morphology and echotexture with flow on color Doppler interrogation. Left ovary measures 2 x 1 x 1 cm. Volume is 1 cc US/US pelvic and transvaginal IMPRESSION: 3 cm uterine fibroid. Right ovary is not identified. Left ovary small which correlates with patient's age. Electronically signed by: Kj Castellon MD 10/16/2024 09:13 AM EST
== END 2024-09-27 11:17 | disposition home or self-care (01) ==
LOC: HO.US 11:16
PROVIDERS: PCP Internal Medicine; Visit Provider Obstetrics & Gynecology
DX: D25.9 Leiomyoma of uterus, unspecified (principal)
CPT/HCPCS: 76830; 76856

== ENCOUNTER → 2024-09-27 11:17 | Outpatient (BNV) | payer OTHER, SELFPAY | PROVIDERS: PCP Internal Medicine; Visit Provider Radiology Diagnostic Radiology | DX: D25.1 Intramural leiomyoma of uterus (principal) | CPT/HCPCS: 76830; 76856 ==

== ENCOUNTER 2024-10-17 12:54 | Outpatient (AMB) | payer OTHER, SELFPAY ==
--- NOTE | 2024-10-17 12:56 | MHC.OFFVIS ---
Intake Visit Reasons: TV ultra sound ok per leann Allergies No Known Allergies [No Known Allergies*] Allergy (Verified 06/04/24 14:05) HPI Comments Details: The patient is scheduled tele health visit for follow-up pelvic ultrasound which showed the following: Uterus: The uterus is anteverted and measures 7 x 2 x 5 cm. Volume is 34 cc. The double wall endometrial thickness is 3 mm. There is a 3 cm intramural heterogeneous, predominantly isoechoic lesion in the body of the uterus without discrete calcifications. Adnexa: The right ovary is not identified. The left ovary demonstrates normal morphology and echotexture with flow on color Doppler interrogation. Left ovary measures 2 x 1 x 1 cm. Volume is 1 cc The patient is doing well with no complaints no vaginal bleeding, pelvic pressure or pain PFSH Medical History ASCUS of cervix with negative high risk HPV Refused influenza vaccine Nocturnal leg cramps Varicose veins of both lower extremities Vitamin D deficiency Acquired hypothyroidism Surgical History Hx of colonoscopy History of dental surgery Status post phlebectomy Social History Housing: House Patient Tobacco Use Status: Never used Tobacco e-Cigarette/Vaping Use: Never Used service: No Current occupational status: employed Cognitive needs: No Hearing needs: No Vision needs: No Review of Systems Const All systems reviewed & are unremarkable except as noted in HPI and below Reports as per HPI and Reports no additional complaints GI Reports no additional complaints Reports no additional complaints Telehealth Telehealth Telehealth Platform: Telephone Location of provider rendering services: practice address Location of patient: address on file Patient Identification confirmed using: Name, : Yes Telehealth method: video Patient verbally consented to treatment: Yes Patient verbally consented to billing insurance company: Yes Patient informed of any privacy concerns related to visit: Yes Assessment & Plan Assessment & Plan (1) Uterine myoma: Code(s): D25.9 - Leiomyoma of uterus, unspecified Category: Medical Qualifiers: Uterine leiomyoma location: unspecified location Qualified Code(s): D25.9 - Leiomyoma of uterus, unspecified Plan: Discussed with the patient the findings on pelvic ultrasound & the risk of myosarcoma; size of myoma has decreased from 3.6 cm down to 3 cm between 04/29 in 09/29, discussed with the patient the options of treatment including expectant management versus hysterectomy; the pros and cons, risks benefits of each approach were discussed with the patient including the fact that in cases of myosarcoma, surgical treatment can lead to early diagnosis and positively affects the prognosis; after further discussion, the patient decided to proceed with expectant management. Will repeat pelvic ultrasound periodically. Instructions given to patient to call in case any of the following occurs: pressure symptoms, abnormal uterine bleeding, pelvic pain; and to schedule a six-months pelvic ultrasound (order placed) and a follow-up appointment . All questions answered, the patient verbalized understanding and agreed with the plan . I spent a total of 20 minutes reviewing the chart, talking to the patient via video and documenting in the medical record. Coding Level of Care Code Tele Est Pt Level 3 (25062) Diagnoses Uterine leiomyoma, unspecified location D25.9 Uterine leiomyoma location: unspecified location
--- OUTSIDE RECORDS SUMMARY | 2024-10-17 12:56 | XMS_ITS | Patient Health Record ---
Author Organization [facility] Address [address] [place] [address] Care Team Providers Care Polisher Aluminum Name Role Phone Frank CLEMENS, Jannet Noble Primary Care Provider Un available Sofia Sandoval Unavailable [phone] Reason For Referral No Information Medications Medication SIG (Take, Route, Fr equency, Duration) Notes Start Date End Date Status Euthyrox 112 MCG Orally Act antoine Social History Tobacco Use: Social History Observation Description Date Details (start date - stop date) Never Smoker NA - NA Tobacco Use/Smoking Question Answer Notes Are you a: nonsmoker Additional Findings: Tobacco Non-User Current no n-smoker Alcohol Screen Question Answer Notes Did you have a drink containing alcohol in the p ast year? Yes Points 0 Tobacco use other than smoking: Question Answer Notes Are you an other tobacco user? No Problems Problem Type SNOMED Code ICD Code Onset Dates Problem Status W/U Status Risk Notes Problem 499301443612409 Hallux valgus (acquired), left foot (M20.12) Active confirmed Problem [id number] Hallux valgus (acquired), right foot (M20.11) Active confirmed Problem [id number] Contracture of joint of left foot (M24.575) Active confirmed Problem [id number] Contracture of joint of right foot (M24.574) Active confirmed Plan Of Treatment Pending Test Test Name Order Date X ray : Foot, left 3V 07/21/2020 X ray : Foot, right 3V 07/21/2020 Insurance Providers Payer Name Payer Address Payer Phone Subscriber Number Group Number Insured Name Patient Relationship to Insured Coverage Start Date Coverage End Date [facility] [address] [facility], [place] [address] [id number] Shanon Palacios Self - patient is the insured Medical (General) History Medical History History ICD Code Sciatica Scleroderma thyroid Vascular phlebitis (clots) Joint implants/screws Rosacea Surgical History Surgery Date(Month/Year) Phlebectomy (r) 2012
== END 2024-10-17 13:42 | disposition home or self-care (01) ==
LOC: HO.HWS 12:54
PROVIDERS: PCP Internal Medicine; Visit Provider Obstetrics & Gynecology
DX: D25.9 Leiomyoma of uterus, unspecified (principal)
CPT/HCPCS: 99213

== ENCOUNTER 2024-11-26 10:21 | Outpatient (AMB) | payer OTHER, SELFPAY ==
[2024-11-26 10:23] VITALS: BP 130/86; PULSE 71; TEMP 36.7; O2SAT 98; BMI 25.6
--- NOTE | 2024-11-26 10:23 | AM.OFFWIN_ITS ---
Intake Vital Signs 11/26/24 10:23 Height 5 ft 6 in Weight 158 lb 6 oz BMI 25.6 BP 130/86 Blood Pressure Location Lt brachial Position Sitting Pulse 71 Pulse Source Pulse Oximeter Temp 98.0 F Temp Source Oral Pulse Oximetry (%) 98 Oxygen Delivery Method Room Air Intake Visit Reasons: EP-rt elbow bursitis Intake Note: Pt presents to the office today for c/o right elbow bursitis after falling on her elbow 3 weeks ago. Pt states it was improving but the shoveled yesterday and it became worse again. Pt state it is swollen and painful. Patient Tobacco Use Status: Never used Tobacco Allergies No Known Allergies [No Known Allergies*] Allergy (Verified 11/26/24 10:29) HPI HPI Comments History of Present Illness Details History of Present Illness The patient is a 64 year old female presenting with exacerbation of right elbow swelling and pain. - Approximately three weeks ago, the darren gonsalez fell on a wet floor at home, impacting the elbow directly. - Initial symptoms included swelling aria t responded to icing and ibuprofen, resolving within a few weeks. - Recently, after snow shoveling, the willie ken experienced a significant increase in elbow swelling and pain, noting throbbing sensations overnight. - This exacerbation is impacting her jessica lity to perform duties at work, which require heavy lifting. Physical Exam General: Cooperative, healthy appearing, comfortable, no acute distress and well developed Orientation: Patient oriented x3 Limitations: none Head: Normal to inspection Ears: Hearing grossly normal bilaterally Nose: Normal external nose present Face and sinus: Normal facial exam Eyes: Appearance normal, both eyes and all related structures Neck: Normal visual inspection and Yes full ROM Respiratory: Normal respiratory effort and able to speak in complete sentences. Skin: No rashes or lesions noted Neuro: Patient oriented x3 Extremities: significant edema of right elbow, no warmth, but with full range of motion PFSH Medical History ASCUS of cervix with negative high risk HPV Refused influenza vaccine Nocturnal leg cramps Varicose veins of both lower extremities Vitamin D deficiency Acquired hypothyroidism Surgical History Hx of colonoscopy History of dental surgery Status post phlebectomy Social History Housing: House Patient Tobacco Use Status: Never used Tobacco e-Cigarette/Vaping Use: Never Used service: No Current occupational status: employed Cognitive needs: No Hearing needs: No Vision needs: No Review of Systems Const All systems reviewed & are unremarkable except as noted in HPI and below Physical Exam Vital Signs: Last Vital Signs Temp 98.0 F 11/26/24 10:23 Pulse 71 11/26/24 10:23 BP 130/86 11/26/24 10:23 Pulse Ox 98 11/26/24 10:23 Oxygen Delivery Method Room Air 11/26/24 10:23 BMI result Body Mass Index 25.6 Assessment & Plan Assessment & Plan (1) Bursitis of right elbow: Code(s): M70.31 - Other bursitis of elbow, right elbow Qualifiers: Elbow bursitis location: olecranon bursitis Qualified Code(s): M70.21 - Olecranon bursitis, right elbow Plan: The patient has been diagnosed with olecranon bursitis. Continued conservative treatment is advised, incorporating ice therapy and MARILIN compression wrapping to mitigate inflammation. Naproxen Aleve) is recommended for anti-inflammatory action, 440 mg every 12 hours for the next 2-3 days, then as needed. Should symptoms not improve, she may return to the [place] clinic for a trail of PO prednisone or a referral for potential corticosterone administration or orthopedic evaluation may be required. A note will be issued for work absence due to the patient's restricted function. Patient was informed and verbally consented to the use of an ambient scribe for clinic note documentation during this visit. Coding Level of Care Code Est Pt Level 3 (44691) Diagnoses Olecranon bursitis of right elbow M70.21 Elbow bursitis location: olecranon bursitis
--- OUTSIDE RECORDS SUMMARY | 2024-11-26 11:38 | XMS_ITS | Patient Health Record ---
Author Organization [facility] Address [address] [facility] [place] [address] Care Team Providers Care Water Aerobics Instructor Name Role Phone Frank CLEMENS, Jannet Noble Primary Care Provider Un available Sofia Sandoval Unavailable [phone] Reason For Referral No Information Medications Medication [...] Problem Status W/U Status Risk Notes Problem [id number] Hallux valgus (acquired), left foot (M20.12) Active confirmed Problem [id number] Hallux valgus (acquired), right foot (M20.11) Active confirmed Problem [id number] Contracture of joint of left foot (M24.575) Active confirmed Problem [id number] Contracture of joint of right foot (M24.574) Active confirmed Plan Of Treatment Pending Test Test Name Order Date X ray : Foot, left 3V 07/21/2020 X ray : Foot, right 3V 07/21/2020 Insurance Providers Payer Name Payer Address Payer Phone Subscriber Number Group Number Insured Name Patient Relationship to Insured Coverage Start Date Coverage End Date [facility] [address] [facility], [place] [address] [phone] [id number] Shanon Palacios Self - patient is the insured Medical (General) History Medical History History ICD Code Sciatica Scleroderma thyroid Vascular phlebitis (clots) Joint implants/screws Rosacea Surgical History Surgery Date(Month/Year) Phlebectomy (r) 2012
== END 2024-11-26 10:47 | disposition home or self-care (01) ==
PROVIDERS: PCP Internal Medicine; Visit Provider Physician Assistant
DX: M70.21 Olecranon bursitis, right elbow (principal)

== ENCOUNTER → 2024-11-26 10:21 | Outpatient (BNVA) | payer OTHER, SELFPAY | PROVIDERS: PCP Internal Medicine; Visit Provider Physician Assistant ==

== ENCOUNTER 2024-12-17 14:40 | Outpatient (AMB) | payer OTHER, SELFPAY ==
--- NOTE | 2024-12-17 14:45 | A.OFFVIS_ITS ---
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 Patient reports that she fell on the right elbow at the beginning of November. Her pain began to improve but it was reaggravated when she was shoveling snow on 11/25/24. She was seen at the walk in clinic where she was advised to use ice application and provided with an [place] wrap for compression. She returned to the walk - in center about 3 days later with no improvements, she was then placed on a 5-day course of Prednisone. Patient reports that she is having continued pain of the elbow. She has noticeab le swelling and redness of the elbow. 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 Patient reports that she fell on the right elbow at the beginning of November. Her pain began to improve but it was reaggravated when she was shoveling snow on 11/25/24. She was seen at the walk in clinic where she was advised to use ice application and provided with an [place]in wrap for compression. She returned to the walk - in center about 3 days later with no improvements, she was then placed on a 5-day course of Prednisone. Patient reports that she is having continued pain of the elbow. She has noticeable swelling and redness of the elbow. [facility] Medical History ASCUS of cervix with negative high risk HPV Refused influenza vaccine Nocturnal leg cramps Varicose veins of both lower extremities Vitamin D deficiency Acquired hypothyroidism Surgical History Hx of colonoscopy History of dental surgery Status post phlebectomy Social History Housing: House Patient Tobacco Use Status: Never used Tobacco e-Cigarette/Vaping Use: Never Used service: No Current occupational status: employed Cognitive needs: No Hearing needs: No Vision needs: No Review of Systems Const All systems reviewed & are unremarkable except as noted in HPI and below Physical Exam Vital Signs: BMI result Body Mass Index 25.5 Extrem Other: Patient's right elbow swollen to inspection over the olecranon process No erythema, ecchymosis, edema noted No lacerations, abrasions, open areas No evidence of infection Patient reports no tenderness to palpation of the olecranon process of right elbow Patient is able to flex and extend the right elbow fully and without difficulty Distal sensation intact Capillary refill brisk Assessment & Plan Assessment & Plan (1) Bursitis of right elbow: Code(s): M70.31 - Other bursitis of elbow, right elbow Category: Medical Qualifiers: Elbow bursitis location: olecranon bursitis Qualified Code(s): M70.21 - Olecranon bursitis, right elbow Plan 1. Olecranon bursitis of right elbow Symptoms improving Patient was educated about this condition Patient is educated about the typical treatment course At this time, patient was provided with 2 2 in [place] bandages for compression of the olecranon bursa of the right elbow Patient is educated that near constant compression is the best way to encourage reuptake of the excess fluid in the olecranon bursa and resolution of symptoms Patient expresses understanding this Patient will follow-up as needed with any acute concerns Coding Level of Care Code New Pt Level 3 (74538) Diagnoses Olecranon bursitis of right elbow M70.21 Elbow bursitis location: olecranon bursitis
[2024-12-17 14:57] VITALS: BMI 25.5
--- OUTSIDE RECORDS SUMMARY | 2024-12-17 15:34 | XMS_ITS | Patient Health Record ---
Author Organization [facility] Address [address] [facility] [place] [address] Care Team Providers Care Canvas Repairer Name Role Phone Frank CLEMENS, Jannet Noble Primary Care Provider Un available Sofia Sandoval Unavailable [phone] Reason For Referral No Information Medications Medication [...] Problem Status W/U Status Risk Notes Problem [id number] Hallux valgus (acquired), left foot (M20.12) Active confirmed Problem 386892165753401 Hallux valgus (acquired), right foot (M20.11) Active confirmed Problem 788117336697313 Contracture of joint of left foot (M24.575) Active confirmed Problem 245962465217492 Contracture of joint of right foot (M24.574) Active confirmed Plan Of Treatment Pending Test Test Name Order Date X ray : Foot, left 3V 07/21/2020 X ray : Foot, right 3V 07/21/2020 Insurance Providers Payer Name Payer Address Payer Phone Subscriber Number Group Number Insured Name Patient Relationship to Insured Coverage Start Date Coverage End Date [facility] [address] [facility], [place] [address] [phone] [id number] Shanon Palacios Self - patient is the insured Medical (General) History Medical History History ICD Code Sciatica Scleroderma thyroid Vascular phlebitis (clots) Joint implants/screws Rosacea Surgical History Surgery Date(Month/Year) Phlebectomy (r) 2012
== END 2024-12-17 15:11 | disposition home or self-care (01) ==
PROVIDERS: PCP Internal Medicine
DX: M70.21 Olecranon bursitis, right elbow (principal)
CPT/HCPCS: 99203

== ENCOUNTER 2025-04-30 10:19 | Outpatient (REF) | payer OTHER, SELFPAY ==
[2025-05-06 08:10] LABS: HPV Genotype 16 Negative (Negative); HPV Genotype 18 Negative (Negative); HPV High Risk Negative (Negative)
== END 2025-04-30 10:20 | disposition home or self-care (01) ==
LOC: HO.LNP 10:19
PROVIDERS: PCP Internal Medicine; Visit Provider Obstetrics & Gynecology
DX: Z01.419 Encounter for gynecological examination (general) (routine) without abnormal findings (principal); D25.9 Leiomyoma of uterus, unspecified; Z11.51 Encounter for screening for human papillomavirus (HPV)
CPT/HCPCS: 87626; 88175

== ENCOUNTER 2025-04-30 10:19 | Outpatient (AMB) | payer OTHER, SELFPAY ==
[2025-04-30 10:20] VITALS: BP 142/80; BMI 24.7
--- NOTE | 2025-04-30 10:20 | A.OFFVIS_ITS ---
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 No complaints. Last Pap/HPV was ascus HPV negative in 12/28 Last Mammogram was in 08/27 BI-RADS 2 at [facility] Last Colonoscopy was in 02/27 Last ultrasound 09/29 showed a 3 cm myoma, the patient is have no complaints no pelvic pain pressure abnormal uterine bleeding. [facility] Medical History ASCUS of cervix with negative high risk HPV Refused influenza vaccine Nocturnal leg cramps Varicose veins of both lower extremities Vitamin D deficiency Acquired hypothyroidism Surgical History Hx of colonoscopy History of dental surgery Status post phlebectomy Social History Housing: House Patient Tobacco Use Status: Never used Tobacco e-Cigarette/Vaping Use: Never Used service: No Current occupational status: employed Cognitive needs: No Hearing needs: No Vision needs: No Female Reproductive History Menstrual Date of last pap smear: 12/28/21 History of abnormal pap smear: Yes (Ascus) Date of Mammogram: 09/01/22 Review of Systems Const All systems reviewed & are unremarkable except as noted in HPI and below Card Reports as per HPI Resp Reports as per HPI GI Reports as per HPI and Reports no additional complaints Reports as per HPI Physical Exam Vital Signs: Last Vital Signs BP 142/80 H 04/30/25 10:20 BMI result Body Mass Index 24.7 Const General: cooperative, healthy appearing and comfortable Chest Chest palpation & inspection: normal inspection of the chest and normal palpation of entire chest wall Breast/axilla inspection: normal inspection of the breasts and normal inspection of the axillae Breast/axilla palpation: normal palpation of the breasts, normal palpation of the axillae and no axillary lymphadenopathy Resp Effort & Inspection: normal respiratory effort Auscultation: clear to auscultation bilaterally Percussion: percussion normal Cardio Palpation: normal PMI Rate: regular rate Rhythm: regular rhythm Heart sounds: no murmurs and no rubs Peripheral pulses: Peripheral pulses 2+ throughout GI Inspection: Yes normal to inspection Palpation (GI): Soft to palpation, nontender, no guarding, not rigid and No hepatosplenomegaly present Percussion: Yes normal to percussion Auscultation: normal bowel sounds Rectal Exam - Female: deferred General: Yes bladder normal to palpation External Female Exam: No lesion Speculum Exam - Vagina: normal appearance of the vagina, normal palpation, normal vaginal discharge and not erythematous Speculum Exam - Cervix: normal appearance of the cervix and normal palpation Bimanual exam- vagina & uterus: normal bimanual exam, normal palpation, uterine size normal, bladder normal to palpation, consistency normal and normal palpation Bimanual Exam- Adnexa, other: normal adnexae, no masses and no tenderness Assessment & Plan Assessment & Plan (1) Well woman exam: Comment: Ascus/HPV negative in 12/28 Code(s): Z01.419 - Encounter for gynecological examination (general) (routine) without abnormal findings Category: Medical Plan: Co testing done. Counseled the patient about the recommended dietary allowance of 1200 mg of Calcium & 600 IU of vitamin D. Mammogram ordered. The patient was instructed to perform monthly self-breast exams and schedule annual exam in a year. All questions answered and the patient verbalized understanding. (2) Uterine myoma: Code(s): D25.9 - Leiomyoma of uterus, unspecified Category: Medical Qualifiers: Uterine leiomyoma location: unspecified location Qualified Code(s): D25.9 - Leiomyoma of uterus, unspecified Plan: Pelvic ultrasound ordered, instructions given the patient to schedule an ultrasound and a follow-up appointment within 2 weeks. All questions answered, the patient verbalized understanding Orders: Orders MM tomosynthesis screening BI Today Z12.31 - Encounter for screening mammogram for malignant neoplasm of breast Referrals Gastroenterology Referral Z12.11 - Encounter for screening for malignant neoplasm of colon Coding Level of Care Code Est Pt Prev Care 40-64y(84002) Diagnoses Well woman exam Z01.419 Uterine leiomyoma, unspecified location D25.9 Uterine leiomyoma location: unspecified location
--- OUTSIDE RECORDS SUMMARY | 2025-04-30 12:01 | XMS_ITS | Patient Health Record ---
Author Organization [facility] Address [address] [facility] [place] [address] Care Team Providers Care Criminal Justice Faculty Name Role Phone Frank CLEMENS, Jannet Noble Primary Care Provider Un available Sofia Sandoval Unavailable [phone] Reason For Referral No Information Medications Medication [...] Problem Status W/U Status Risk Notes Problem [id number] Hallux valgus (acquired), left foot (M20.12) Active confirmed Problem 787295070718561 Hallux valgus (acquired), right foot (M20.11) Active confirmed Problem 372957899406513 Contracture of joint of left foot (M24.575) Active confirmed Problem 889905409260580 Contracture of joint of right foot (M24.574) Active confirmed Plan Of Treatment Pending Test Test Name Order Date X ray : Foot, left 3V 07/21/2020 X ray : Foot, right 3V 07/21/2020 Insurance Providers Payer Name Payer Address Payer Phone Subscriber Number Group Number Insured Name Patient Relationship to Insured Coverage Start Date Coverage End Date [facility] [address] [facility], [place] [address] [id number] Shanon Palacios Self - patient is the insured Medical (General) History Medical History History ICD Code Sciatica Scleroderma thyroid Vascular phlebitis (clots) Joint implants/screws Rosacea Surgical History Surgery Date(Month/Year) Phlebectomy (r) 2012
== END 2025-04-30 10:59 | disposition home or self-care (01) ==
LOC: HO.HWS 10:19
PROVIDERS: PCP Internal Medicine; Visit Provider Obstetrics & Gynecology
DX: Z01.419 Encounter for gynecological examination (general) (routine) without abnormal findings (principal); D25.9 Leiomyoma of uterus, unspecified
CPT/HCPCS: 99396; 99459

== ENCOUNTER 2025-06-02 12:44 | Outpatient (REF) | payer OTHER, SELFPAY ==
--- NOTE | ~2025-06-02 | US_ITS ---
CLINICAL HISTORY: D25.9 - Leiomyoma of uterus, unspecified US pelvis transabdominal and transvaginal with color and duplex Doppler Comparison: US/SR - US PELVIC AND TRANSVAGINAL - 09/27/24 11:46 EST US/DC/SR - US PELVIS TRANSABDOMINAL AND TRANSVAGINAL - 05/01/24 11:22 EDT Findings: Transabdominal scanning performed for overall anatomy. Transvaginal scanning performed for additional detail. LMP: Postmenopausal Anteverted uterus, diminutive in size heterogeneous in echotexture measuring 5.5 x 2.9 x 4.2 cm. Normal endometrium, measuring 3.2 mm thickness Uterine fibroids: Fundal intramural 2.6 x 2.3 x 2.8 cm previously measuring 2.6 x 2.2 x 2.7 cm Neither ovary identified No adnexal masses or fluid collections. No free fluid. Impression: 1. Postmenopausal uterine atrophy with relatively stable fundal fibroid. 2. Normal thickness endometrium 3. Neither ovary identified. No adnexal masses or fluid collections. This document has been electronically signed by: Easton Urbano MD on 06/03/2025 10:15:53
--- OUTSIDE RECORDS SUMMARY | 2025-06-02 13:28 | XMS_ITS | Patient Health Record ---
Author Organization [facility] Address [address] [facility] [facility] [place] [address] Care Team Providers Care Voice Professor Name Role Phone Frank CLEMENS, Jannet Noble Primary Care Provider Un available Sofia Sandoval Unavailable [phone] Reason For Referral No Information Medications Medication [...] Problem Status W/U Status Risk Notes Problem Acquired hallux valgus (54914189) Hallux valgus (acquired), left foot (M20.12) Active confirmed Problem Acquired hallux valgus (75031883) Hallux valgus (acquired), right foot (M20.11) Active confirmed Problem Contracture of joint of left foot (580310872626264 ) Contracture of joint of left foot (M24.575) Active confirmed Problem Contracture of joint of right foot (073748224323616 ) Contracture of joint of right foot (M24.574) Active confirmed Plan Of Treatment Pending Test Test Name Order Date X ray : Foot, left 3V 07/21/2020 X ray : Foot, right 3V 07/21/2020 Insurance Providers Payer Name Payer Address Payer Phone Subscriber Number Group Number Insured Name Patient Relationship to Insured Coverage Start Date Coverage End Date [facility] [address] [facility] [place] [address] [id number] Shanon Palacios Self - patient is the insured Medical (General) History Medical History History ICD Code Sciatica Scleroderma thyroid Vascular phlebitis (clots) Joint implants/screws Rosacea Surgical History Surgery Date(Month/Year) Phlebectomy (r) 2013
== END 2025-06-02 12:45 | disposition home or self-care (01) ==
LOC: HO.HMGCX 12:44
PROVIDERS: PCP Internal Medicine; Visit Provider Obstetrics & Gynecology
DX: D25.9 Leiomyoma of uterus, unspecified (principal)
CPT/HCPCS: 76830; 76856

== ENCOUNTER → 2025-06-02 12:49 | Outpatient (BNV) | payer OTHER, SELFPAY | PROVIDERS: PCP Internal Medicine; Visit Provider Radiology Diagnostic Radiology | DX: D25.9 Leiomyoma of uterus, unspecified (principal); N95.2 Postmenopausal atrophic vaginitis | CPT/HCPCS: 76830; 76856 ==

== ENCOUNTER 2025-06-18 08:27 | Outpatient (AMB) | payer OTHER, SELFPAY ==
--- NOTE | 2025-06-18 08:33 | A.OFFPC_ITS ---
Vital Signs 06/18/25 08:38 Height 5 ft 6 in Weight 162 lb BMI 26.1 BP 130/64 Blood Pressure Location Lt brachial Position Sitting Respiration 16 Pulse 60 Pulse Source Pulse Oximeter Temp 98.0 F Temp Source Oral Pulse Oximetry (%) 98 Oxygen Delivery Method Room Air Intake Visit Reasons: annual exam Intake Note: Pt is here today for her PE: last mammogram 09/01/22, papsmear 04/30/25, colonoscopy 02/26/24 Allergies No Known Allergies (No Known Allergies*) Allergy (Verified 06/18/25 08:52) Medication List - Last Reconciled 06/18/25 by Jannet Marie MD levothyroxine 112 mcg PO DAILY Tobacco use date assessed: 06/18/25 Dental Screening Dental Screen Date: 06/18/25 Did you have a dental visit in the last 12 months?: Yes Did you have a dental problem in the last 6 months where you did not have access to dental care?: No Was dental information given to patient?: Patient has dentist HPI annual exam HPI Details 64-year-old lady here today for her phys ical exam. Overdue for her screening mammogram, never had a bone density scan done. Up-to-date with her cervical cancer screening, done by Dr. Hernandez in 2023 with benign findings. Has colonoscopy was done in [address] Cedillo with removal of hyperplastic polyp in presence of diverticulosis and internal hemorrhoids which were nonbleeding note d, due again in 2033. She has acquired hypothyroidism, with thyroid levels stable and controlled on levothyroxine 112 mcg daily. Has bilateral hallux valgus, metatarsalgia, and 2nd and 3rd hammertoes on right foot, seen by Dr. Larson at [facility], advised surgery, but patient hesitant to have it done as it does not bother her except what she wears closed shoes, where the tops of the toes with rub against the shoe. Patient also was seen by Dr. Sofia Sandoval who recommended the same treatment [facility] Medical History (Updated 06/18/25 @ 09:23 by Jannet Marie MD) Hammertoe of right foot Hallux valgus ASCUS of cervix with negative high risk HPV Refused influenza vaccine Nocturnal leg cramps Varicose veins of both lower extremities Vitamin D deficiency Acquired hypothyroidism Surgical History Hx of colonoscopy History of dental surgery Status post phlebectomy Social History Housing: House Patient Tobacco Use Status: Never used Tobacco e-Cigarette/Vaping Use: Never Used service: No Current occupational status: employed Cognitive needs: No Hearing needs: No Vision needs: No Questionnaire PHQ-9 Over the last 2 weeks, how often have you been bothered by any of the following problems? 1. Little interest or pleasure in doing things: not at all 2. Feeling down, depressed, or hopeless: not at all 3. Trouble falling or staying asleep, or sleeping too much: not at all 4. Feeling tired or having little energy: not at all 5. Poor appetite or overeating: not at all 6. Feeling bad about yourself - or that you are a failure or have let yourself or your family down: not at all 7. Trouble concentrating on things, such as reading the newspaper or watching television: not at all 8. Moving or speaking so slowly that other people could have noticed. Or the opposite - being so fidgety or restless that you have been moving around a lot more than usual: not at all 9. Thoughts that you would be better off or of hurting yourself in some way: not at all Total score: 0 Depression Screening Interpretation: Negative Depression Screening Done: Yes 02028 - PHQ-9 Billing: Yes Source: Developed by Drs. Wolf Sharif, Ainsley Mabry, Joo Carlton and colleagues, with an educational gildardo from [employer]. Thrive Questionnaire Date Thrive assessed: 06/18/25 I am a: Patient What is your living situation today?: I have a steady place to live Within the past 12 months, did the food you bought not last and you didn't have the money to get more?: Never true Within the past 12 months, did you worry whether your food would run out before you got money to buy more?: Never true Do you have trouble paying for medicines?: No Do you have trouble getting transportation to medical appointments?: No Do you have trouble paying your heating and electricity bill?: No Do you have trouble taking care of your child, family member or friend?: No Do you have trouble with day-to-day activities such as bathing, preparing meals, shopping, managing finances, etc.?: No Are you currently unemployed and looking for a job?: No Are you interested in more education?: No Please select the resources that you would like help with: None Currently or been in a relationship where the following occur: No concerns reported THRIVE Score: 0 AUDIT C Alcohol Use Questionnaire (AUDIT-C) 1. How often do you have a drink containing alcohol?: 2-3 times a week 2. How many drinks containing alcohol do you have on a typical day when you are drinking?: 3 or 4 3. How often do you have six or more drinks on one occasion?: Less than monthly Total Score: 5 Score Reviewed/Action Taken: Yes RAJINDER-7 AMB Questionnaire RAJINDER-7 Date RAJINDER - 7 assessed: 06/18/25 Feeling nervous, anxious, or on edge: 0 = Not at all Not being able to stop or control worryin = Not at all Worrying too much about different things: 0 = Not at all Trouble relaxin = Not at all Being so restless that it is hard to sit still: 0 = Not at all Becoming easily annoyed or irritable: 0 = Not at all Feeling afraid as if something awful might happen: 0 = Not at all Total RAJINDER-7 score (0-4 normal; 5-9 mild; 10-14 moderate; 15-21 severe): 0 Source: Developed by Drs. Wolf Sharif, Ainsley Mabry, Joo Carlton and colleagues, with an educational gildardo from [employer]. RAJINDER-7 Assessment Billing RAJINDER-7 Assessment Tool: RAJINDER-7 Assessment 10335 Review of Systems Const Denies body aches, Denies fatigue, Denies fever(s), Denies headache(s) and Denies weakness Eyes Details: She sees Dr. Cheng for her eye exam Denies change in vision ENT Denies dizziness, Denies headache(s), Denies nasal congestion and Denies nasal discharge Card Denies chest pain, Denies lightheadedness, Denies palpitations and Denies dyspnea Resp Denies chest congestion, Denies cough, Denies dyspnea and Denies wheezing GI Denies abdominal pain, Denies change in bowel habits and Denies heartburn Denies urinary frequency, Denies dysuria and Denies urinary urgency Musc Reports no additional complaints Skin/Breast Denies lesions and Denies rash Neuro Denies dizziness, Denies headache(s) and Denies weakness Psych Reports no additional complaints Endo Denies fatigue, Denies polydipsia, Denies polyuria and Denies palpitations Arden/Lymph Denies easy bruising Aller/Immun Denies seasonal rhinorrhea and Denies wheezing Physical exam (Primary Care) Vital Signs: Last Vital Signs Temp 98.0 F 06/18/25 08:38 Pulse 60 06/18/25 08:38 Resp 16 06/18/25 08:38 BP 130/64 06/18/25 08:38 Pulse Ox 98 06/18/25 08:38 Oxygen Delivery Method Room Air 06/18/25 08:38 BMI result Body Mass Index 26.1 Tobacco/Smoking Status: Tobacco use Status Tobacco use date assessed 06/18/25 06/18/25 08:35 Patient Tobacco Use Status Never used Tobacco 06/18/25 08:35 e-Cigarette/Vaping Use Never Used 06/18/25 08:35 PHQ-9: PHQ-9 Score PHQ-9: Total score 0 06/18/25 08:43 Depression Screening Interpretation: Negative Thrive Assessment: Date of Thrive Assessment Date Thrive assessed 06/18/25 06/18/25 08:35 Currently or been in a relationship where the following occur: No concerns reported Const General: no acute distress Nutritional Appearance: average body habitus Orientation/consciousness: patient oriented x3 Limitations: no limitations [facility] Head: Yes normocephalic Ears: external ears normal and TM's normal bilaterally General nose exam: Normal external nose present and Normal nasal mucous membranes and turbinates present Face and sinus: Yes face symmetric Mouth: Normal oral and palatal mucosa present and moist mucous membranes Eyes General: appearance normal, both eyes and all related structures Neck Neck: Yes full ROM, Yes no lymphadenopathy and Yes supple Thyroid: Thyroid normal (Nonpalpable) Chest Chest palpation & inspection: normal inspection of the chest Breast/axilla inspection: normal inspection of the breasts Breast/axilla palpation: normal palpation of the breasts Resp Effort & Inspection: normal respiratory effort and able to speak in complete sentences Auscultation: clear to auscultation bilaterally Cardio Rate: regular rate Rhythm: regular rhythm Heart sounds: S1 normal heart sound present and S2 normal heart sound present Bruits: no carotid bruits GI Palpation (GI): Soft to palpation, nontender and no guarding Auscultation: normal bowel sounds Other: Up-to-date with her cervical cancer screening, done in [address] Hernandez General: Yes deferred Back/Spine/Pelvis Back: No back tenderness Skin Other: tattoo on lower back General skin exam: no rashes or lesions noted Neuro General: patient oriented x3, gait normal, tone normal, moves all extremities, Normal light touch and pain sensation, no focal motor deficits and CN's II-XI intact bilaterally Extrem Other: Superficial varicosities noted in both lower extremities General: Yes full ROM, Yes no joint enlargement, Yes no pedal edema, Yes no calf tenderness and Yes normal gait Psych Appearance: grossly normal and well kempt Mental Status: mental status grossly normal Speech and movement: Normal speech and movement present Affect: normal affect Attitude: cooperative Coding Level of Care Code Est Pt Prev Care 40-64y(36043) Diagnoses Annual visit for general adult medical examination with abnormal findings Z00. Acquired hypothyroidism E03.9 Vitamin D deficiency E55.9 Screening for Malignant Neoplasm of Skin Z12.83 Hallux valgus M20.10 Hammertoe of right foot M20.41 Additional Codes RAJINDER-7 Assessment Billing - RAJINDER-7 Assessment Tool: RAJINDER-7 Assessment 01997 ([id number]) PHQ-9 - 26767 - PHQ-9 Billing: Yes ([id number]) Assessment & Plan Assessment & Plan (1) Annual visit for general adult medical examination with abnormal findings: Code(s): Z00.01 - Encounter for general adult medical examination with abnormal findings Plan: Will check appropriate labs. Recommended dental visit every 6 months and regular eye exams, at least every 2 years, sees Dr. Cheng Take adequate calcium in diet and vitamin-D 3 at 2000 IU per cap once a day, in addition to weight-bearing exercises to help maintain good muscle tone and weight control. Instructed to do self-breast exam, and recommended to get yearly mammogram, ordered together with a bone density scan. Up-to-date with her screening colonoscopy due again in 2033 . Recommended to get shingles vaccine and flu shot but patient declined, up-to-date with her tetanus diphtheria booster (2) Acquired hypothyroidism: Code(s): E03.9 - Hypothyroidism, unspecified Category: Medical Plan: Continue with levothyroxine 112 mcg daily, ordered TSH and free T4 levels to be checked (3) Vitamin D deficiency: Code(s): E55.9 - Vitamin D deficiency, unspecified Category: Medical Plan: Will check vitamin-D level recommended to take [id number] vitamin D3 at 2000 units daily (4) Screening for Malignant Neoplasm of Skin: Code(s): Z12.83 - Encounter for screening for malignant neoplasm of skin Plan: Referred to dermatology for skin cancer screen (5) Hallux valgus: Code(s): M20.10 - Hallux valgus (acquired), unspecified foot Category: Medical Plan: Patient is still undecided whether to get surgery, will call Dr. Larson's office to schedule an appointment (6) Hammertoe of right foot: Code(s): M20.41 - Other hammer toe(s) (acquired), right foot Category: Medical Plan: Patient is still undecided whether to get surgery, will call Dr. Larson's office to schedule an appointment Orders: Orders Alanine Aminotransferase Today D25.9 - Leiomyoma of uterus, unspecified, E03.9 - Hypothyroidism, unspecified, E55.9 - Vitamin D deficiency, unspecified, Z00.01 - Encounter for general adult medical examination with abnormal findings, Z13.1 - Encounter for screening for diabetes mellitus, Z13.220 - Encounter for screening for lipoid disorders Aspartate Amino Transferase Today D25.9 - Leiomyoma of uterus, unspecified, E03.9 - Hypothyroidism, unspecified, E55.9 - Vitamin D deficiency, unspecified, Z00.01 - Encounter for general adult medical examination with abnormal findings, Z13.1 - Encounter for screening for diabetes mellitus, Z13.220 - Encounter for screening for lipoid disorders Vitamin D 25-OH Total Today D25.9 - Leiomyoma of uterus, unspecified, E03.9 - Hypothyroidism, unspecified, E55.9 - Vitamin D deficiency, unspecified, Z00.01 - Encounter for general adult medical examination with abnormal findings, Z13.1 - Encounter for screening for diabetes mellitus, Z13.220 - Encounter for screening for lipoid disorders Hemoglobin and Hematocrit Today D25.9 - Leiomyoma of uterus, unspecified, E03.9 - Hypothyroidism, unspecified, E55.9 - Vitamin D deficiency, unspecified, Z00.01 - Encounter for general adult medical examination with abnormal findings, Z13.1 - Encounter for screening for diabetes mellitus, Z13.220 - Encounter for screening for lipoid disorders Basic Metabolic Panel Fasting Today D25.9 - Leiomyoma of uterus, unspecified, E03.9 - Hypothyroidism, unspecified, E55.9 - Vitamin D deficiency, unspecified, Z00.01 - Encounter for general adult medical examination with abnormal findings, Z13.1 - Encounter for screening for diabetes mellitus, Z13.220 - Encounter for screening for lipoid disorders Lipid Panel Today D25.9 - Leiomyoma of uterus, unspecified, E03.9 - Hypothyroidism, unspecified, E55.9 - Vitamin D deficiency, unspecified, Z00.01 - Encounter for general adult medical examination with abnormal findings, Z13.1 - Encounter for screening for diabetes mellitus, Z13.220 - Encounter for screening for lipoid disorders Thyroid Stimulating Hormone Today D25.9 - Leiomyoma of uterus, unspecified, E03.9 - Hypothyroidism, unspecified, E55.9 - Vitamin D deficiency, unspecified, Z00.01 - Encounter for general adult medical examination with abnormal findings, Z13.1 - Encounter for screening for diabetes mellitus, Z13.220 - Encounter for screening for lipoid disorders Free T4 (Free Thyroxine) Today D25.9 - Leiomyoma of uterus, unspecified, E03.9 - Hypothyroidism, unspecified, E55.9 - Vitamin D deficiency, unspecified, Z00.01 - Encounter for general adult medical examination with abnormal findings, Z13.1 - Encounter for screening for diabetes mellitus, Z13.220 - Encounter for screening for lipoid disorders MM tomosynthesis screening BI Today E55.9 - Vitamin D deficiency, unspecified, Z12.31 - Encounter for screening mammogram for malignant neoplasm of breast, Z13.820 - Encounter for screening for osteoporosis, Z78.0 - Asymptomatic menopausal state XR DEXA axial skeleton Today E55.9 - Vitamin D deficiency, unspecified, Z12.31 - Encounter for screening mammogram for malignant neoplasm of breast, Z13.820 - Encounter for screening for osteoporosis, Z78.0 - Asymptomatic menopausal state Referrals Dermatology Referral Z12.83 - Encounter for screening for malignant neoplasm of skin
[2025-06-18 08:38] VITALS: BP 130/64; PULSE 60; RESP 16; TEMP 36.7; O2SAT 98; BMI 26.1
--- OUTSIDE RECORDS SUMMARY | 2025-06-18 08:39 | XMS_ITS | Patient Health Record ---
Author Organization [facility] Address [address] [place] [address] Care Team Providers Care Ski Patrol Name Role Phone Frank CLEMENS, Jannet Noble Primary Care Provider Un available Sofia Sandoval Unavailable [phone] Reason For Referral No Information Medications Medication [...] Status Risk Notes Problem Acquired hallux valgus (38314427) Hallux valgus (acquired), left foot (M20.12) Active confirmed Problem Acquired hallux valgus (59804840) Hallux valgus (acquired), right foot (M20.11) Active confirmed Problem Contracture of joint of left foot (795594475016118 ) Contracture of joint of left foot (M24.575) Active confirmed Problem Contracture of joint of right foot (097900782534251 ) Contracture of joint of right foot (M24.574) Active confirmed Plan Of Treatment Pending Test Test Name Order Date X ray : Foot, left 3V 07/21/2020 X ray : Foot, right 3V 07/21/2020 Insurance Providers Payer Name Payer Address Payer Phone Subscriber Number Group Number Insured Name Patient Relationship to Insured Coverage Start Date Coverage End Date [facility] [address] [facility] [place] [phone] [id number] Shanon Palacios Self - patient is the insured Medical (General) History Medical History History ICD Code Sciatica Scleroderma thyroid Vascular phlebitis (clots) Joint implants/screws Rosacea Surgical History Surgery Date(Month/Year) Phlebectomy (r) 2013
== END 2025-06-18 09:14 | disposition home or self-care (01) ==
LOC: HO.HMCC 08:28
PROVIDERS: PCP Internal Medicine; Visit Provider Internal Medicine
DX: Z00.01 Encounter for general adult medical examination with abnormal findings (principal); E03.9 Hypothyroidism, unspecified; E55.9 Vitamin D deficiency, unspecified; Z12.83 Encounter for screening for malignant neoplasm of skin; M20.10 Hallux valgus (acquired), unspecified foot; M20.41 Other hammer toe(s) (acquired), right foot

== ENCOUNTER → 2025-06-18 08:27 | Outpatient (BNVA) | payer OTHER, SELFPAY | PROVIDERS: PCP Internal Medicine; Visit Provider Internal Medicine | DX: Z00.01 Encounter for general adult medical examination with abnormal findings (principal); E03.9 Hypothyroidism, unspecified; E55.9 Vitamin D deficiency, unspecified; M20.10 Hallux valgus (acquired), unspecified foot; M20.41 Other hammer toe(s) (acquired), right foot | CPT/HCPCS: 96127 ==

== ENCOUNTER 2025-06-20 06:48 | Outpatient (REF) | payer OTHER, SELFPAY ==
--- OUTSIDE RECORDS SUMMARY | 2025-06-20 06:50 | XMS_ITS | Patient Health Record ---
Author Organization [facility] Address [address] [place] [address] Care Team Providers Care Staff Developer Name Role Phone Frank CLEMENS, Jannet Noble Primary Care Provider Un available Sofia Sandoval Unavailable [phone] Reason For Referral No Information Medications Medication [...] Status Risk Notes Problem Acquired hallux valgus (19949925) Hallux valgus (acquired), left foot (M20.12) Active confirmed Problem Acquired hallux valgus (47979651) Hallux valgus (acquired), right foot (M20.11) Active confirmed Problem Contracture of joint of left foot (653993770590830 ) Contracture of joint of left foot (M24.575) Active confirmed Problem Contracture of joint of right foot (260187960247350 ) Contracture of joint of right foot (M24.574) Active confirmed Plan Of Treatment Pending Test Test Name Order Date X ray : Foot, left 3V 07/21/2020 X ray : Foot, right 3V 07/21/2020 Insurance Providers Payer Name Payer Address Payer Phone Subscriber Number Group Number Insured Name Patient Relationship to Insured Coverage Start Date Coverage End Date [facility] [address] [facility] [place] [address] [phone] [id number] Shanon Palacios Self - patient is the insured Medical (General) History Medical History History ICD Code Sciatica Scleroderma thyroid Vascular phlebitis (clots) Joint implants/screws Rosacea Surgical History Surgery Date(Month/Year) Phlebectomy (r) 2013
[2025-06-20 10:22] LABS: Hematocrit 39.5 % (37.0-47.0); Hemoglobin 13.0 g/dl (12.0-16.0)
[2025-06-20 10:43] LABS: Alanine Aminotransferase 18 U/L (0-31); Anion Gap 11 (12-20); Aspartate Amino Transferase 29 U/L (5-31); Blood Urea Nitrogen 20 mg/dL (9-16); Calcium 9.2 mg/dL (8.4-10.2); Carbon Dioxide 29 mmol/L (22-29); Chloride 103 mmol/L (96-108); Cholesterol 195 mg/dL (<200); Estimated Glomerular Filt Rate > 60; HDL Cholesterol 84 mg/dL (>40); Potassium 4.3 mmol/L (3.3-5.1); Sodium 139 mmol/L (135-145); Triglycerides 65 mg/dL (<150)
[2025-06-20 11:04] LABS: Free T4 (Free Thyroxine) 1.23 ng/dL (0.71-1.85); Thyroid Stimulating Hormone 0.49 uIU/mL (0.32-4.0)
== END 2025-06-20 06:49 | disposition home or self-care (01) ==
LOC: HO.HMGCLDS 06:48
PROVIDERS: PCP Internal Medicine; Visit Provider Internal Medicine
DX: Z00.01 Encounter for general adult medical examination with abnormal findings (principal); Z13.220 Encounter for screening for lipoid disorders; Z13.1 Encounter for screening for diabetes mellitus; E55.9 Vitamin D deficiency, unspecified; E03.9 Hypothyroidism, unspecified; D25.9 Leiomyoma of uterus, unspecified
CPT/HCPCS: 36415; 80048; 80061; 82306; 84439; 84443; 84450; 84460; 85014; 85018

== ENCOUNTER 2025-08-15 09:50 | Outpatient (REF) | payer OTHER, SELFPAY ==
--- NOTE | ~2025-08-15 | MM_ITS ---
EXAMINATION: DXA BONE DENSITY AXIAL HISTORY: Z12.31 - Encounter for screening mammogram for malignant neoplasm of breast TECHNIQUE: [employer] Dual energy absorptiometry (DEXA) of the lumbar spine, total left hip, and femoral neck was performed. COMPARISON: Comparison is made with the prior examination dated 05/22/2020. FINDINGS: The bone mineral density of the lumbar spine is 1.187 g/cm2, corresponding to a T-score of 0.1, and a Z-score of 1.3. This is indicative of normal bone mineral density. This represents a BMD change of -1.2% compared to the prior exam. This is not statistically significant. The bone mineral density of the left total hip is 1.005 g/cm2, corresponding to a T-score of 0.0, and a Z-score of 0.9. This is indicative of normal bone mineral density. This represents a BMD change of -4.8% compared to the prior exam. This is statistically significant. The bone mineral density of the left femoral neck is 0.951 g/cm2, corresponding to a T-score of -0.6, and a Z-score of 0.6. This is indicative of normal bone mineral density. This represents a BMD change of -5.0% compared to the prior exam. FRACTURE RISK: The FRAX index suggests a ten year probability of major osteoporotic fracture of 7.3%, and of hip fracture 0.4%. MM/XR DEXA axial skeleton IMPRESSION: Based on bone mineral density, and according to World Health Organization (WHO) criteria, the diagnosis is consistent with normal bone mineral density. Statistically, 68% of repeat scans fall within 1 SD (+/- 0.010 g/cm2 for AP spine L1-L4) and 1 SD (+/- 0.012 g/cm2 for femur total) FRAX is a trademark of the [employer]'s [place] [facility] Metabolic Bone Disease, a World Health Organization (WHO) Collaborating Center. Electronically signed by: Wolf Marin MD 08/15/2025 10:44 AM EDT
--- OUTSIDE RECORDS SUMMARY | 2025-08-15 10:38 | XMS_ITS | Patient Health Record ---
Author Organization [facility] Address [address] [place] [address] Care Team Providers Care Peoplesoft Administrator Name Role Phone Frank CLEMENS, Jannet Noble Primary Care Provider Un available Sofia Sandoval Unavailable [phone] Reason For Referral No Information Medications Medication [...] Status Risk Notes Problem Acquired hallux valgus (13317267) Hallux valgus (acquired), left foot (M20.12) Active confirmed Problem Acquired hallux valgus (94714907) Hallux valgus (acquired), right foot (M20.11) Active confirmed Problem Contracture of joint of left foot (379012864500213 ) Contracture of joint of left foot (M24.575) Active confirmed Problem Contracture of joint of right foot (483139353257364 ) Contracture of joint of right foot (M24.574) Active confirmed Plan Of Treatment Pending Test Test Name Order Date X ray : Foot, left 3V 07/21/2020 X ray : Foot, right 3V 07/21/2020 Insurance Providers Payer Name Payer Address Payer Phone Subscriber Number Group Number Insured Name Patient Relationship to Insured Coverage Start Date Coverage End Date [facility] [address] [facility] [place] [address] [id number] Shanon Palacios Self - patient is the insured Medical (General) History Medical History History ICD Code Sciatica Scleroderma thyroid Vascular phlebitis (clots) Joint implants/screws Rosacea Surgical History Surgery Date(Month/Year) Phlebectomy (r) 2013
== END 2025-08-15 09:51 | disposition home or self-care (01) ==
LOC: HO.MAMMO 09:50
PROVIDERS: PCP Internal Medicine; Visit Provider Internal Medicine
DX: Z12.31 Encounter for screening mammogram for malignant neoplasm of breast (principal); Z13.820 Encounter for screening for osteoporosis; Z78.0 Asymptomatic menopausal state; E55.9 Vitamin D deficiency, unspecified
CPT/HCPCS: 77063; 77067; 77080

== ENCOUNTER → 2025-08-15 10:00 | Outpatient (BNV) | payer OTHER, SELFPAY | PROVIDERS: PCP Internal Medicine; Visit Provider Radiology Diagnostic Radiology | DX: E28.39 Other primary ovarian failure (principal) | CPT/HCPCS: 77080 ==

== ENCOUNTER → 2025-10-17 08:30 | Outpatient (BNV) | payer OTHER, SELFPAY | PROVIDERS: PCP Internal Medicine; Visit Provider Internal Medicine | DX: R92.8 Other abnormal and inconclusive findings on diagnostic imaging of breast (principal) | CPT/HCPCS: 76642; 77061; 77065 ==

== ENCOUNTER 2025-10-17 08:34 | Outpatient (REF) | payer OTHER, SELFPAY ==
--- NOTE | ~2025-10-17 | US_ITS ---
EXAMINATION: MM DIAGNOSTIC DIGITAL BREAST TOMOSYNTHESIS, RIGHT Limited right ultrasound. CLINICAL INFORMATION: Call back from screening for right breast asymmetry on CC view. COMPARISON: Mammography: Prior imaging on PACS. TECHNIQUE: Digital breast tomosynthesis is performed in both the craniocaudal and mediolateral oblique views along with computer-aided detection (CAD). Synthesized 2D images are generated from the tomosynthesis. FINDINGS: There are scattered areas of fibroglandular density. Asymmetry lateral right breast posterior depth on CC view does not persist on additional imaging projections and likely represented overlapping breast tissue. There are no significant masses, abnormal calcifications, or other abnormalities. Targeted color Doppler ultrasound scanning in the lateral breast 7-11 o'clock demonstrates normal fibroglandular breast tissue. There is no sonographic abnormal finding. US/US Breast RT Limited Mamm Only IMPRESSION: No mammographic evidence of malignancy. ASSESSMENT: BI-RADS Category 1: Negative RECOMMENDATION: 1 year F/U Results were provided to the patient at time of visit by the technologist. This patient's information was entered into a reminder system with a target due date for their next mammogram. Electronically signed by: Edwina Anderson DO 10/17/2025 09:19 AM [facility]
== END 2025-10-17 08:35 | disposition home or self-care (01) ==
LOC: HO.MAMMO 08:34
PROVIDERS: PCP Internal Medicine; Visit Provider Internal Medicine
DX: N64.89 Other specified disorders of breast (principal)
CPT/HCPCS: 76642; 77061; 77065